=== PATIENT | female | born 1975 | race Caucasian/White ===

== ENCOUNTER 2024-02-11 13:53 | Emergency (ER) | payer SELFPAY ==
[2024-02-11 13:59] VITALS: BP 112/60; PULSE 64; TEMP 36.8; O2SAT 98; BMI 25.8
--- NOTE | 2024-02-11 14:06 | US_ITS ---
The [address] [address] Patient Name: ENZO MCNEILL MRN: [id number] date: 1975 Sex: F Assigned Patient Location: ED.MAIN Current Patient Location: Accession/Order Number: [id number] Exam Date: 02/11/2024 14:50 Report Date: 02/12/2024 07:44 At the request of: CONRAD ROSENBAUM Procedure: US venous doppler LE RT CLINICAL DATA: Leg pain PROCEDURE: Right lower extremity venous duplex ultrasound. TECHNIQUE: Mcfadden-scale, color flow, and waveform spectral analysis was performed of the right lower extremity. FINDINGS: The right common femoral, profunda femoral, femoral, and popliteal veins were compressible. The great saphenous vein demonstrated an area of noncompressibility in its distal aspect consistent with superficial venous thrombosis. No venous thrombosis was seen. The veins fill with color Doppler. Augmentation was normal. US/US venous doppler LE RT IMPRESSION: 1. No acute lower extremity deep venous thrombosis. 2. Superficial venous thrombosis involving the distal aspect of the great saphenous vein. Electronically authenticated by: Jay REYNOSO Date: 02/12/2024 07:44
[2024-02-11] MEDS: IBUPROFEN 400 MG TABLET 800 MG PO (14:12)
--- NOTE | 2024-02-11 15:39 | ED_ITS ---
HPI HPI - General Adult General Chief complaint: Extremity Problem, Nontraumatic Stated complaint: LOWER EXTREMITY INJURY Time Seen by Provider: 02/11/24 13:57 Source: patient Mode of arrival: walk-in History of Present Illness HPI narrative: 48-year-old female presents here with chief complaint of right lower extremity pain and swelling. She has a soft tissues swelling noted to the medial aspect of the right lower extremity. No injury or or fall was noted. Negative Homans' sign. Patient has no calf pain or tenderness. She states she is traveling here from [place]. Family members are concerned of possible DVT. Low suspicion. Swelling noted consistent with probable phlebitis. Related Data Home Medications ?Medication ?Instructions ?Recorded ?Confirmed albuterol sulfate 2.5 mg/3 mL mg 02/11/24 (0.083 %) solution for nebulization albuterol sulfate 90 mcg/actuation inhalation 02/11/24 aerosol inhaler budesonide-formoterol HFA 160 inhalation 02/11/24 mcg-4.5 mcg/actuation aerosol inhaler (Symbicort) escitalopram oxalate 20 mg tablet mg 02/11/24 fluticasone propionate 50 intranasal 02/11/24 mcg/actuation nasal spray,suspension levothyroxine 100 mcg tablet mcg 02/11/24 linaclotide 290 mcg capsule mcg 02/11/24 (Linzess) methylphenidate HCl 20 mg mg PO 02/11/24 tablet,extended release omeprazole 40 mg capsule,delayed mg 02/11/24 release quetiapine 100 mg tablet (Seroquel) mg 02/11/24 quetiapine 50 mg tablet,extended mg PO 02/11/24 release 24 hr rizatriptan 10 mg tablet mg 02/11/24 sucralfate 1 gram tablet 02/11/24 Previous Rx's ?Medication ?Instructions ?Recorded ibuprofen 800 mg tablet 800 mg PO Q8H PRN pain #20 tabs 02/11/24 Allergies Allergy/AdvReac Type Severity Reaction Status Date / Time muscle relaxer Allergy Agitated Uncoded 02/11/24 14:05 Opioid HPI Opioid Management Most Recent Opioid Data: Last SEP Pain Assessment 02/11/24 14:12 Review of Systems ROS Narrative All Systems are negative except as noted/marked.All systems reviewed and otherwise negative Exam Narrative Exam Narrative: Nurses note and vital signs reviewed and patient is not hypoxic. General: The patient appears well and in no apparent distress. Patient is resting comfortably on cart. Skin: Warm, dry, no pallor noted. There is no rash noted. Head: Normocephalic, atraumatic Eye: Normal conjunctiva, no drainage, EOMI. PERRL Ears, Nose, Mouth, and Throat: oral mucosa is moist. Nares patent. Mouth without vesicles. Ear canals patent. Tm's without Erythema Musculoskeletal: right lower extremity tenderness, soft tissue swelling to medial calf consistent with prob phlebitis. The patient has no evidence of calf tenderness, no pitting edema, symmetrical pulses noted bilaterally, neg homans Neurological: A&O x4, normal speech Psychiatric: Cooperative Constitutional Vital Signs, click to edit/add: Last Vital Signs Temp 98.2 F 02/11/24 13:59 Pulse 64 02/11/24 13:59 Resp 18 02/11/24 13:59 BP 112/60 02/11/24 13:59 Pulse Ox 98 02/11/24 13:59 O2 Del Method Room Air 02/11/24 13:59 Course Vital Signs Vital signs: Vital Signs Temperature 98.2 F 02/11/24 13:59 Pulse Rate 64 02/11/24 13:59 Respiratory Rate 18 02/11/24 13:59 Blood Pressure 112/60 02/11/24 13:59 Pulse Oximetry 98 02/11/24 13:59 Oxygen Delivery Method Room Air 02/11/24 13:59 Temperature 98.2 F 02/11/24 13:59 Pulse Rate 64 02/11/24 13:59 Respiratory Rate 18 02/11/24 13:59 Blood Pressure 112/60 02/11/24 13:59 Pulse Oximetry 98 02/11/24 13:59 Oxygen Delivery Method Room Air 02/11/24 13:59 Medical Decision Making MDM Narrative Medical decision making narrative: Lower extremity tenderness consistent with probable thrombophlebitis confirmed with ultrasound. Patient told use warm heat compress medicated here with ibuprofen discharged home prescription of ibuprofen. Warm heat compress and elevation suggested. Patient verbalized understanding agrees with plan of care. Differential Diagnosis Differential Diagnosis: Thrombophlebitis, DVT, bruise, Medical Records Medical records reviewed: Yes I reviewed the patient's medical records Lab Data Lab results reviewed: Yes I reviewed the patient's lab results Imaging Data us : Radiologist's impression: ITS Impressions Venous Doppler Study 02/11/24 14:06 IMPRESSION: 1. No acute lower extremity deep venous thrombosis. 2. Superficial venous thrombosis involving the distal aspect of the great saphenous vein. Electronically authenticated by: Jay REYNOSO Date: 02/11/2024 15:29 Discharge Plan Discharge Stand Alone Forms: Portal Instructions Chief Complaint: Extremity Problem, Nontraumatic Clinical Impression: Superficial thrombophlebitis Patient Disposition: Home, Self-Care Time of Disposition Decision: 15:33 Condition: Good Prescriptions / Home Meds: New ibuprofen 800 mg tablet 800 mg PO Q8H PRN (Reason: pain) Qty: 20 0RF No Action albuterol sulfate 2.5 mg /3 mL (0.083 %) solution for nebulization sucralfate 1 gram tablet rizatriptan 10 mg tablet omeprazole 40 mg capsule,delayed release(DR/EC) quetiapine [Seroquel] 100 mg tablet levothyroxine 100 mcg tablet methylphenidate HCl 20 mg tablet extended release PO albuterol sulfate 90 mcg/actuation HFA aerosol inhaler INHALATION fluticasone propionate 50 mcg/actuation spray,suspension INTRANASAL escitalopram oxalate 20 mg tablet budesonide-formoterol [Symbicort] 160-4.5 mcg/actuation HFA aerosol inhaler INHALATION quetiapine 50 mg tablet extended release 24 hr PO Linzess 290 mcg capsule Print Language: Kyrgyz Instructions: Superficial Thrombophlebitis (ED) Referrals: Physician,Non-Staff, MD [Primary Care Provider] - 1 week
== END 2024-02-11 15:54 | disposition home or self-care (01) ==
PROVIDERS: Emergency Provider Emergency Medicine Emergency Medical Services
DX: I80.01 Phlebitis and thrombophlebitis of superficial vessels of right lower extremity (principal)
CPT/HCPCS: 93971; 99284

== ENCOUNTER 2024-07-29 07:27 | Outpatient (OUT) | payer MEDICARE, MEDICAID, SELFPAY ==
--- OUTSIDE RECORDS SUMMARY | 2024-07-29 07:34 | XMS_ITS | CCD ---
Author Organization [facility] Inform ion Partnership QUALITY ASSURANCE TECH [facility] Care Team Providers Care Wrist Closer Name Role Phone Laina Shah Attending Unavailable Encounters Encounter Date Encounter Type Care Provider Facility Start: 07-28-2024 [facility]: 07-24-[facility]24 ambulatory Laina Pablo Facility:[facility] Payers Date Payer Category Payer Private Health Insurance [id number] 1975 Unknown [id number] Summary Purpose Family History No Family History Records Found Advance Directives No Advanced Directives Records Found Additional Source Comments INFORMATION SOURCE (unrecogn ized section and content) DATE CREATED AUTHOR 07/27/2024 [facility] FOR RECORDS PERTAINING TO PATIENTS WHO ARE OR HAVE BEEN ENROLLED IN A CHEMICAL DEPENDENCY/SUBSTANCEABUSE PROGRAM, SOME INFORMATION MAY BE OMITTED. This clinical summary was aggregated from multiple sources. Caution should be exercised in using it in the provision of clinical care. This summary normalizes information from multiple sources, and as a consequence, information in this document may materially change the coding, format and clinical context of patient data. In addition, data may be omitted in some cases. CLINICAL DECISIONS SHOULD BE BASED ON THE PRIMARY CLINICAL RECORDS. [facility] [employer] [facility] provides no warranty or guarantee of the accuracy or completeness of information in this document.
[2024-07-29 09:21] LABS: Basophils Absolute Auto 0.1 10^3/uL (0.0-0.1); Basophils Percent Auto 0.9 % (0.2-2.0); Eosinophils Absolute Auto 0.2 10^3/uL (0.0-0.7); Eosinophils Percent Auto 2.7 % (0.9-7.0); Hematocrit 42.8 % (36.0-48.0); Hemoglobin 14.3 g/dL (12.0-16.0); Immature Granulocytes Abs Auto 0.01 10^3/uL (0.00-0.03); Immature Granulocytes Pct Auto 0.1 % (0.0-0.5); Lymphocytes Absolute Auto 1.9 10^3/uL (1.2-3.8); Lymphocytes Percent Auto 27.4 % (20.5-60.0); Mean Corpuscular HGB Conc 33.4 g/dL (29.9-35.2); Mean Corpuscular Hemoglobin 32.2 pg (26.7-34.0); Mean Corpuscular Volume 96.4 fL (81.0-99.0); Mean Platelet Volume 9.8 fL (9.5-13.5); Monocytes Absolute Auto 0.6 10^3/uL (0.3-0.8); Monocytes Percent Auto 7.9 % (1.7-12.0); Neutrophils Absolute Auto 4.3 10^3/uL (1.4-6.5); Platelet Count 227 10^3/uL (150-450); Red Blood Count 4.44 10^6/uL (4.20-5.40); Red Cell Distribution Width 13.2 % (11.0-15.0)
[2024-07-29 10:04] LABS: Alanine Aminotransferase 29 U/L (14-59); Albumin Level 3.7 g/dL (3.4-5.0); Alkaline Phosphatase 84 U/L (46-116); Aspartate Amino Transferase 27 U/L (15-37); BUN Creatinine Ratio 14.3; Bilirubin Total 0.3 mg/dL (0.2-1.0); Carbon Dioxide 29.6 mmol/L (21.0-32.0); Chloride 102 mmol/L (98-107); Estimated GFR (African America >60 (>=60 mL/min/1.73m^2); Estimated GFR (Non-African Ame >60 (>=60 mL/min/1.73m^2); Globulin 3.7 g/dL; Glucose 78 mg/dL (74-106); HDL Cholesterol 61 mg/dL (40-60); Potassium 4.6 mmol/L (3.5-5.1); Sodium 142 mmol/L (136-145); Thyroid Stimulating Hormone 4.255 uIU/mL (0.358-3.740); Total Protein 7.4 g/dL (6.4-8.2); Triglycerides 142 mg/dL (<=150); VLDL CHOLESTEROL 28.4 mg/dL
[2024-07-29 13:45] LABS: Cholesterol 194 mg/dL (<=200)
== END 2024-07-29 07:28 | disposition home or self-care (01) ==
LOC: LAB 07:31
PROVIDERS: PCP Nurse Practitioner; Visit Provider Nurse Practitioner
DX: E03.9 Hypothyroidism, unspecified (principal); Q24.9 Congenital malformation of heart, unspecified; Z13.220 Encounter for screening for lipoid disorders
CPT/HCPCS: 36415; 80053; 80061; 84443; 85025